=== PATIENT | female | born 1960 | race Caucasian/White ===

== ENCOUNTER 2017-08-05 10:51 | Emergency (ER) | payer OTHER ==
[~2017-08-05] VITALS: Ht 162.6 cm; Wt 70.0 kg
[~2017-08-05 10:51] MED LIST: AMPI500C2 PO; ATOR-2 PO; CIPR250T27 PO; ESTR1PAT65 TD; LAMO100T PO; LAMO100T5 PO; LISI-167 PO; LORA0.5T PO; METF500T4 PO; METR500T PO; OMEP-110 PO; PANT20TA2 PO; POTA500T PO
[2017-08-05] MEDS ORDERED: SODIUM CHLORIDE 0.9% 1,000 ML IV ONE (10:55)
[2017-08-05] MEDS ORDERED: MORPHINE SULFATE 4 MG/ML, 1ML IVPush PRN (11:00)
[2017-08-05] MEDS ORDERED: PLEASE ENTER HEIGHT AND WEIGHT MC SCH (11:00)
[2017-08-05] MEDS ORDERED: MECLIZINE CHEWABLE 25 MG TAB PO ONE (11:00)
[2017-08-05] MEDS ORDERED: ONDANSETRON 2MG/ML, 2ML IVPush ONE (11:00)
[2017-08-05] MEDS ORDERED: ATOR40TA PO (11:08)
[2017-08-05] MEDS ORDERED: CYAN50TA PO (11:08)
[2017-08-05] MEDS ORDERED: MECLIZINE CHEWABLE 25 MG TAB ONE (11:10)
[2017-08-05] MEDS ORDERED: MORPHINE SULFATE 4 MG/ML, 1ML ONE (11:10)
[2017-08-05] MEDS ORDERED: ONDANSETRON 2MG/ML, 2ML ONE (11:11)
[2017-08-05 11:18] LABS: HEMATOCRIT 37.1 % (34.6-47.8); HEMOGLOBIN 12.1 g/dL (11.7-16.4)
[2017-08-05 11:29] LABS: BLOOD UREA NITROGEN 19 mg/dL (7-18)
[2017-08-05 12:25] VITALS: BP 107/63
== END 2017-08-05 12:29 | disposition home or self-care (01) ==
LOC: ED 12:23
DX: G43.909 Migraine, unspecified, not intractable, without status migrainosus (principal); G44.219 Episodic tension-type headache, not intractable; E11.9 Type 2 diabetes mellitus without complications; I10 Essential (primary) hypertension; Z90.49 Acquired absence of other specified parts of digestive tract; Z90.710 Acquired absence of both cervix and uterus
CPT/HCPCS: 36415; 70450; 80048; 82040; 85025; 85610; 96361; 96374; 96375; 99285; J2405; J7030

== ENCOUNTER 2019-10-25 13:02 | Outpatient (CLI) | payer OTHER ==
[~2019-10-25 13:02] MED LIST changes: +ATOR40TA PO; +CYAN50TA PO; +METF500T17 PO; -METF500T4 PO
== END 2019-10-25 23:59 | disposition home or self-care (01) ==
LOC: CFH 13:02
PROVIDERS: ATTEND Specialist
DX: N64.4 Mastodynia (principal)
CPT/HCPCS: 77065; G0279